=== PATIENT | male | born 1985 | race Two or more races ===

== ENCOUNTER → 2021-01-16 | Emergency (ER) | payer OTHER ==
[~2021-01-16] VITALS: Ht 170.2 cm; Wt 63.5 kg
== END | disposition left against medical advice (07) ==
LOC: ER 02:38
DX: S62.616A Displaced fracture of proximal phalanx of right little finger, initial encounter for closed fracture (principal); W22.8XXA Striking against or struck by other objects, initial encounter; Y93.89 Activity, other specified; Y92.89 Other specified places as the place of occurrence of the external cause; Y99.8 Other external cause status

== ENCOUNTER 2022-05-25 02:06 | Emergency (ER) | payer OTHER ==
[~2022-05-25] VITALS: Ht 170.2 cm; Wt 72.6 kg
[2022-05-25] MEDS ORDERED: MUPIROCIN22 GM TOP (05:53)
[2022-05-25] MEDS ORDERED: CEPHALEXIN500 MG PO (05:53)
== END 2022-05-25 06:06 ==
LOC: ER 02:06
DX: S90.415A Abrasion, left lesser toe(s), initial encounter (principal); X58.XXXA Exposure to other specified factors, initial encounter; Y93.9 Activity, unspecified; Y92.9 Unspecified place or not applicable; Y99.9 Unspecified external cause status; Z88.8 Allergy status to other drugs, medicaments and biological substances

== ENCOUNTER 2023-01-21 02:51 | Emergency (ER) | payer OTHER ==
[~2023-01-21] VITALS: Ht 170.2 cm; Wt 77.1 kg
[~2023-01-21 02:51] MED LIST: CEPHALEXIN500 MG PO; MUPIROCIN22 GM TOP
[2023-01-21] MEDS ORDERED: MEDROLPACK PO (03:56)
[2023-01-21] MEDS ORDERED: DICLOFENAC POTA50 MG PO (03:56)
[2023-01-21] MEDS ORDERED: CYCLOBENZAPRINE5 MG PO (03:56)
== END 2023-01-21 04:21 | disposition home or self-care (01) ==
LOC: ER 02:51
DX: M54.50 Low back pain, unspecified (principal); Z88.8 Allergy status to other drugs, medicaments and biological substances

== ENCOUNTER → 2023-04-04 | Emergency (ER) | payer OTHER ==
[~2023-04-04] VITALS: Ht 165.1 cm; Wt 56.7 kg
[~2023-04-04] MED LIST changes: +CYCLOBENZAPRINE5 MG PO; +DICLOFENAC POTA50 MG PO; +MEDROLPACK PO
== END | disposition home or self-care (01) ==
LOC: ER 09:30
DX: L97.529 Non-pressure chronic ulcer of other part of left foot with unspecified severity (principal); L08.9 Local infection of the skin and subcutaneous tissue, unspecified; Z88.8 Allergy status to other drugs, medicaments and biological substances